=== PATIENT | male | born 2000 | race Caucasian/White ===

== ENCOUNTER 2024-07-18 16:33 | Emergency (ER) | payer OTHER ==
[~2024-07-18] VITALS: Ht 170.2 cm; Wt 78.0 kg
[~2024-07-18 16:33] MED LIST: ACET325UDC; AMOX50SU PO; AZIT200SU PO; CODGUAEL PO; HYDACE7.5L PO; ONDA4 PO; ONDA4ODT MM; RXONDA4ODT MM; SULF10OPSA OU; Zovirax400 MG PO
[2024-07-18 17:40] LABS: CORONAVIRUS COVID-19 AG Negative (NEGATIVE); INFLUENZA A AG Positive (NEGATIVE); INFLUENZA B AG Negative (NEGATIVE)
[2024-07-18] MEDS ORDERED: Acetaminophen 500 MG Tab PO ONE (18:00)
[2024-07-18] MEDS ORDERED: DiphenhydrAMINE HCl 50 MG/ML 1ML Vial IV ONE (18:00)
[2024-07-18] MEDS ORDERED: Prochlorperazine Edisylate 10 mg Vial IV ONE (18:00)
[2024-07-18] MEDS ORDERED: Dexamethasone Sod Phos 10 MG/ML 1ML VIAL IV ONE (18:00)
[2024-07-18] MEDS ORDERED: NS 1,000 ML IV SCH (18:00)
[2024-07-18] MEDS ORDERED: Ketorolac Tromethamine 15mg Vial IV ONE (18:00)
[2024-07-18] MEDS ORDERED: Oseltamivir Phosphate 75 MG Cap PO ONE (18:00)
[2024-07-18] MEDS ORDERED: OSEL75CA PO (19:38)
[2024-07-18 20:43] VITALS: BP 107/74
== END 2024-07-18 20:43 | disposition home or self-care (01) ==
LOC: ER 16:33
PROVIDERS: Physician Assistant
DX: J10.1 Influenza due to other identified influenza virus with other respiratory manifestations (principal); Z88.5 Allergy status to narcotic agent
CPT/HCPCS: 70450; 87428-QW; 96374; 96375; 99284-25; A9270; J0780; J1100; J1200; J1885; J7030